=== PATIENT | male | born 1975 | race African-American/Black ===

== ENCOUNTER 2016-04-24 20:31 | Emergency (ER) | payer OTHER ==
[2016-04-24 18:39] LABS: BASOPHILS 0.3 %; BASOPHILS ABSOLUTE 0.03 10/3/uL (0.0-0.16); EOSINOPHILS 1.8 %; EOSINOPHILS ABSOLUTE 0.19 10/3/uL (0.0-0.53); ER CBC TAT 0 Hrs 05 Mins; HEMATOCRIT 42.4 % (40.0-51.0); HEMOGLOBIN 14.8 g/dL (13.6-17.8); IMMATURE GRANULOCYTES 0.3 %; IMMATURE GRANULOCYTES ABSOLUTE 0.03 10/3/uL (0.0-0.11); LYMPHOCYTES 24.7 %; LYMPHOCYTES ABSOLUTE 2.61 10/3/uL (0.67-4.30); MANUAL DIFF NO %; MEAN CORPUS HGB CONC 34.9 g/dL (32.0-36.0); MEAN CORPUSCULAR HEMOGLOB 31.2 pg (26.0-34.0); MEAN CORPUSCULAR VOLUME 89.5 fL (80-100); MEAN PLATELET VOLUME 9.7 fL (9.2-13.0); MONOCYTES 9.9 %; MONOCYTES ABSOLUTE 1.04 10/3/uL (0.21-1.20); NEUTROPHILS ABSOLUTE 6.65 10/3/uL (2.02-8.40); PLATELET COUNT 254 10/3/uL (150-400); RBC DISTRIBUTION WIDTH 14.1 % (12.0-16.0); RED CELL COUNT 4.74 10/6/uL (4.7-6.1); WHITE BLOOD CELLS 10.6 10/3/uL (4.5-10.5)
[2016-04-24 18:55] LABS: CALCIUM, SERUM 8.6 MG/DL (8.5-10.4); CHLORIDE, SERUM 102 MMOL/L (96-112); CO2 (CARBON DIOXIDE) 31 MMOL/L (24-34); CREATININE 1.34 MG/DL (0.70-1.30); GFR AFRICAN AMERICAN 75 ML/MIN (>=60); GFR NON AFRICAN AMERICAN 64 ML/MIN (>=60); GLUCOSE, SERUM 93 MG/DL (60-99); INTERNATIONAL NORMAL RATI 1.1 UNITS (-); POTASSIUM, SERUM 3.6 MMOL/L (3.5-5.3); PROTIME (NOT ORD) 14.2 SEC (12.0-14.5); SODIUM, SERUM 141 MMOL/L (135-148)
[2016-04-24 18:56] LABS: BUN (BLOOD UREA NITROGEN) 13 MG/DL (6-23)
[2016-04-24 19:01] LABS: CHEST PAIN PROFILE TAT 0 Hrs 27 Mins; TROPONIN I 0.07 NG/ML (<0.05)
[~2016-04-24 20:31] MED LIST: *DENIES; APRES50 PO; ASAB PO; BENTYL20 PO; CAT2 PO; COREG12 PO; DENIES MEDS; DIOV160 PO; DIOVAN PO; DIOVAN40 MG PO; HALF81 PO; L20 PO; L40 PO; NITROSPRAY SL; NORCO1 TA1 PO; PRAVACHOL40 MG PO; PRIN20 PO; TRANDAT100 PO; V80 PO; VERAPAMIL PO; ZOVI800 PO
[2016-04-24] MEDS ORDERED: CAT2 PO (21:14)
[2016-04-24] MEDS ORDERED: COREG12 PO (21:14)
[2016-04-24] MEDS ORDERED: ASAB PO (21:15)
[2016-04-24] MEDS ORDERED: PRAVASTATIN PO (21:15)
[2016-04-24] MEDS ORDERED: LASIX PO (21:15)
== END 2016-04-24 21:56 | disposition admitted as inpatient to this hospital (09) ==
LOC: ER 20:31
PROVIDERS: Emergency Medicine
DX: I16.1 Hypertensive emergency (principal); I12.9 Hypertensive chronic kidney disease with stage 1 through stage 4 chronic kidney disease, or unspecified chronic kidney disease; N18.9 Chronic kidney disease, unspecified; F17.200 Nicotine dependence, unspecified, uncomplicated; Z88.8 Allergy status to other drugs, medicaments and biological substances; Z79.82 Long term (current) use of aspirin; Z79.899 Other long term (current) drug therapy
CPT/HCPCS: 71020; 80048; 83735; 84484; 85025; 85610; 85730; 93005; 96374; 99291; A9270-GY; J0360

== ENCOUNTER 2016-07-24 15:11 | Emergency (ER) | payer OTHER ==
[~2016-07-24 15:11] MED LIST changes: +LASIX PO; +PRAVASTATIN PO
== END 2016-07-24 16:55 | disposition home or self-care (01) ==
LOC: ER 15:11
DX: J06.9 Acute upper respiratory infection, unspecified (principal); I10 Essential (primary) hypertension; E78.5 Hyperlipidemia, unspecified; F41.9 Anxiety disorder, unspecified; Z88.8 Allergy status to other drugs, medicaments and biological substances; Z79.899 Other long term (current) drug therapy; Z79.82 Long term (current) use of aspirin
CPT/HCPCS: 99283

== ENCOUNTER 2016-07-30 05:41 | Observation (INO) | payer OTHER ==
--- NOTE | ~2016-07-30 | DS ---
Discharge Summary [facility] [address] [place]. [address] NAME: YANELI ORTIZ : 71 STATUS : ADM Selina PAT#: [id number] AGE: 41 ADM/REG DATE : 07/30/16 MR#: [id number] REPORT SERV DATE: 07/31/16 DICTATED BY: ELIZABETH TRAORE DATE: 07/31/16 REPORT STATUS : Draft TRANSCRIBED BY: GALO DATE: 07/31/16 ADMISSION DATE: 07/30/2016 DISCHARGE DATE: DIAGNOSES: 1. Atrial fibrillation with rapid ventricular response. 2. Hypertension, uncontrolled. 3. Chronic kidney disease. FOLLOWUP: The patient is to follow up with his primary care physician, Fany Cedillo, nurse practitioner, with [facility] in one week and also the patient's primary care is to follow up with an outpatient stress test in one week for baseline abnormal EKG. The patient is to keep a journal of blood pressure readings while at home. DIET: [facility] diet. DISCHARGE MEDICATIONS: Acyclovir 400 mg p.o. b.i.d., enteric-coated aspirin 81 mg p.o. daily, Coreg 12.5 mg p.o. b.i.d., furosemide 20 mg p.o. daily, lisinopril 10 mg p.o. b.i.d., potassium chloride 10 mEq p.o. daily, clonidine 0.2 mg p.o. b.i.d. p.r.n. systolic pressures greater than or equal to 160, diltiazem CD 180 mg p.o. q.a.m. IMAGING: Echocardiogram with an ejection fraction of 50% to 55% with mild diastolic dysfunction and moderate concentric left ventricular hypertrophy and mild pulmonary valvular regurgitation. LV function is normal with no regional wall motion abnormality. The chamber size is normal. HOSPITAL COURSE: Please see HP dictated by Dr. Roger Choi. This is a 41-year-old male with past medical history of paroxysmal atrial fibrillation and hypertension of which the patient is known to have uncontrolled hypertension. The patient missed the dose of his clonidine and Coreg and awakened with palpitations. Please refer to H and P for further details. The patient was seen in the emergency department, found to have an uncontrolled hypertension and atrial fibrillation with RVR and the patient was initiated on Cardizem drip. The patient did not have any chest pain before nor during his hospitalization. Initially, the patient was admitted under observation. He did not receive any digoxin which was ordered by the admitting physician, and the patient returned and converted to sinus rhythm prior to any digoxin. Therefore, the digoxin was completely discontinued. However, the patient was continued on Cardizem oral with his Coreg for rate control and also for better blood pressure management. The patient has known uncontrolled hypertension. He was continued on aspirin as well. He did not have any chest pain, although he does have a baseline abnormal EKG which is chronic. The patient was advised for an inpatient stress test due to some mild demand ischemia. However, the patient refused and the patient said he could not afford to remain in the hospital for that test and preferred for an outpatient stress test. The patient was advised on the importance of following up for an outpatient stress test and should be followed by his primary respiratory care practitioner, Fany Cedillo, nurse practitioner. The patient also agreed. Also, the patient was informed of the importance of Discharge Summary [address] [id number] NAME: YANELI ORTIZ : 71 STATUS : ADM Selina PAT#: [id number] AGE: 41 ADM/REG DATE : 07/30/16 MR#: [id number] REPORT SERV DATE: 07/31/16 DICTATED BY: ELIZABETH TRAORE DATE: 07/31/16 REPORT STATUS : Draft TRANSCRIBED BY: GALO DATE: 07/31/16 better blood pressure control and increased cardiovascular risk with uncontrolled hypertension. Also, the patient was advised on AHA diet and close monitoring of his blood pressure daily while at home. Also, the patient was advised to return to the hospital if he were to develop any chest discomfort. Also, the patient's lisinopril dose was increased from once a day to b.i.d. for better a blood pressure control. The patient is to be discharged to home and to follow up as an outpatient. DICTATED BY: Brian Rush/GALO Elizabeth Traore M.D. / [id number] CC: Brian Rush, BOILER REPAIR SUPERVISOR
--- NOTE | ~2016-07-30 | HP ---
History And Physical [address] [place]. [address] NAME: YANELI ORTIZ : 71 STATUS : ADM Selina PAT#: [id number] AGE: 41 ADM/REG DATE : 07/30/16 MR#: [id number] REPORT SERV DATE: 07/30/16 DICTATED BY: BLANCA PIRES DATE: 07/30/16 REPORT STATUS : Draft TRANSCRIBED BY: MODL DATE: 07/30/16 DATE OF ADMISSION: 07/30/2016 EXAMINING PHYSICIAN: Blanca Pires M.D. REASON FOR ADMISSION: Atrial fibrillation and hypertension. HISTORY OF PRESENT ILLNESS: This is a 41-year-old black male, who skipped a dose of clonidine and carvedilol yesterday. He woke up this morning with palpitations. He drank a beer yesterday but did not drink heavily. He came to the emergency room and was found to have atrial fibrillation, seen by Rani, nurse practitioner. Blood pressure is elevated and I am asked for assistance with admission and treatment. PAST MEDICAL HISTORY: The patient has similar episode of atrial fibrillation in the past and had an echocardiogram done. Indications are that he had it in 2007 and the record has been purged. He was last hospitalized on 01/04/2016, with hypertension uncontrolled. He has been out of his hypertensive medication and developed hypertension. He was restarted on his home medications and improved. He denies chest pain, shortness of breath. He is bothered by the palpitation, feels weak. HOME MEDICATIONS: Include the following: Lasix unknown dose one a day. Acyclovir 400 mg p.o. b.i.d., though he has not had much problem with herpes in the past. Aspirin 81 mg p.o. daily. Carvedilol 12.5 mg p.o. b.i.d. Clonidine 0.2 p.o. daily. Lisinopril 10 mg p.o. daily. Potassium 20 mEq p.o. daily. Lasix probably 40 mg p.o. b.i.d. ALLERGIES: LABETALOL AND AMLODIPINE, HAD AN ADVERSE REACTION. SOCIAL HISTORY: He is not . Has two grown children. 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 Drinks beer four or five days a week. Smokes cigarettes when he drinks a beer, usually. He does not smoke regularly. He does not attend mosque. FAMILY HISTORY: He has two brothers; one with diabetes. Two sisters, alive and well. Mother had diabetes and rheumatoid arthritis. Father's health history is unknown. REVIEW OF SYSTEMS: No chest pain or shortness of breath. Does have palpitations. No syncopal episodes. No fever, chills, night sweats, melena, hematemesis, fits, seizures, convulsions, or unilateral weakness, nausea, vomiting, or diarrhea. The remainder of the review of systems is negative. PHYSICAL EXAMINATION: VITAL SIGNS: Blood pressure 155/103 with a heart rate of 93, respiratory rate 18, afebrile. HEENT: EOMI. Sclerae injected. Conjunctivae pink. NECK: Negative bruits without any JVD. History And Physical [address] [place]. [address] NAME: YANELI ORTIZ : 71 STATUS : ADM Selina PAT#: [id number] AGE: 41 ADM/REG DATE : 07/30/16 MR#: [id number] REPORT SERV DATE: 07/30/16 DICTATED BY: BLANCA PIRES DATE: 07/30/16 REPORT STATUS : Draft TRANSCRIBED BY: GALO DATE: 07/30/16 CHEST: Clear to A and P. HEART: Irregularly irregular. S1, S2. No murmur, gallop, or click. ABDOMEN: Prominent, obese, nontender. Bowel sounds positive. EXTREMITIES: Showed no edema. Distal pulses are intact, dorsalis pedis and posterior tibial. NEUROLOGIC: He does withdraw to plantar stimulation. Health Policy Nurse equal and symmetric bilaterally. Coordination intact. He has no tremor. He is symmetric and equal neurologically bilaterally. SKIN: Without rash, ecchymosis, or bruising. He does have tattoos on his arms and on the volar aspect bilaterally. LYMPHATICS: There is no adenopathy palpable. LABORATORY DATA: Chest x-ray shows no acute cardiopulmonary abnormality. The hemoglobin was 16.9, hematocrit 46.8, white count 9.8, platelets 308,000. His INR is 1.1. D-dimer was 0.34, which is less than the upper and a normal, which is less than 0.05. Sodium is 142, potassium 3.5, creatinine 1.3, with BUN of 12 and troponin was 0.07 but had been 0.1 in the past. DIAGNOSTIC DATA: The EKG shows evidence of left ventricular hypertrophy strain with a lateral T-wave inversion and atrial fibrillation. ASSESSMENT: 1. Atrial fibrillation with controlled ventricular response, now on IV Cardizem drip. He had a similar episode in the past. We will check echocardiogram looking for evidence of anatomic abnormalities. I suspect LVH with strain based on the EKG and his history of hypertension. I will look at this. I am going to go ahead and digitalize as he is already on beta giacomo, though switching from carvedilol to metoprolol may have additional antiarrhythmic effect and be a better rate controlling beta giacomo. We will leave at the carvedilol for now and add digoxin. 2. Hypertensive urgency. Uncontrolled on current medication. It could be noncompliance that is part of the problem here now. 3. Modest obesity. 4. Left ventricular hypertrophy with strain. 5. History genital herpes, on acyclovir. PLAN: I am going to admit to observation. I suspect this will be a short-lived episode and restarting some medication may be sufficient to have him return back to normal sinus rhythm. Consider DC electrical cardioversion if necessary. NORMA/GALO Blanca Pires M.D. / [id number] History And Physical [address] [address] NAME: YANELI ORTIZ : 71 STATUS : ADM Selina PAT#: [id number] AGE: 41 ADM/REG DATE : 07/30/16 MR#: [id number] REPORT SERV DATE: 07/30/16 DICTATED BY: BLANCA PIRES DATE: 07/30/16 REPORT STATUS : Draft TRANSCRIBED BY: MODL DATE: 07/30/16 CC: Pedro Jordan Jr, MD [facility]
[2016-07-30 05:38] LABS: BASOPHILS 0.3 %; BASOPHILS ABSOLUTE 0.03 10/3/uL (0.0-0.16); EOSINOPHILS 2.8 %; EOSINOPHILS ABSOLUTE 0.27 10/3/uL (0.0-0.53); HEMOGLOBIN 16.9 g/dL (13.6-17.8); IMMATURE GRANULOCYTES 0.4 %; IMMATURE GRANULOCYTES ABSOLUTE 0.04 10/3/uL (0.0-0.11); LYMPHOCYTES 29.3 %; LYMPHOCYTES ABSOLUTE 2.86 10/3/uL (0.67-4.30); MEAN CORPUSCULAR HEMOGLOB 31.6 pg (26.0-34.0); MEAN CORPUSCULAR VOLUME 87.5 fL (80-100); MEAN PLATELET VOLUME 9.5 fL (9.2-13.0); MONOCYTES 7.9 %; MONOCYTES ABSOLUTE 0.77 10/3/uL (0.21-1.20); NEUTROPHILS 59.3 %; NEUTROPHILS ABSOLUTE 5.79 10/3/uL (2.02-8.40); PLATELET COUNT 308 10/3/uL (150-400); RBC DISTRIBUTION WIDTH 13.6 % (12.0-16.0); RED CELL COUNT 5.35 10/6/uL (4.7-6.1); WHITE BLOOD CELLS 9.8 10/3/uL (4.5-10.5)
[2016-07-30 05:39] LABS: HEMATOCRIT 46.8 % (40.0-51.0); MANUAL DIFF NO %; MEAN CORPUS HGB CONC 36.1 g/dL (32.0-36.0)
[2016-07-30 05:44] LABS: INTERNATIONAL NORMAL RATI 1.1 UNITS (-); PARTIAL THROMBO TIME 32.1 SEC (22.5-37.2); PROTIME (NOT ORD) 13.7 SEC (12.0-14.5)
[2016-07-30 05:54] LABS: BUN (BLOOD UREA NITROGEN) 10 MG/DL (6-23); CALCIUM, SERUM 9.1 MG/DL (8.5-10.4); CHLORIDE, SERUM 108 MMOL/L (96-112); CO2 (CARBON DIOXIDE) 26 MMOL/L (24-34); GFR AFRICAN AMERICAN 77 ML/MIN (>=60); GFR NON AFRICAN AMERICAN 67 ML/MIN (>=60); GLUCOSE, SERUM 89 MG/DL (60-99); POTASSIUM, SERUM 3.5 MMOL/L (3.5-5.3); SODIUM, SERUM 142 MMOL/L (135-148)
[2016-07-30 05:58] LABS: CHEST PAIN PROFILE TAT 0 Hrs 26 Mins; TROPONIN I 0.07 NG/ML (<0.05)
[2016-07-30 06:34] LABS: D-DIMER QUANTITATIVE 0.34 ug/mLFEU (< 0.50)
[2016-07-30] MEDS ORDERED: PRIN10 PO (08:02)
[2016-07-30] MEDS ORDERED: ZOVIRAX400 MG PO (08:02)
[2016-07-30] MEDS ORDERED: HALF81 PO (08:02)
[2016-07-30] MEDS ORDERED: COREG12 PO (08:03)
[2016-07-30] MEDS ORDERED: KLOR-CON 1010 MEQ PO (08:03)
[2016-07-30] MEDS ORDERED: CAT2 PO (08:03)
[2016-07-30] MEDS ORDERED: [UNRECOGNIZED DRUG - REMARK] PO (08:04)
[2016-07-30] MEDS ORDERED: *UNABLE3 (08:06)
[2016-07-30] MEDS ORDERED: L20 PO (10:44)
[2016-07-30 15:31] LABS: GAMMA GT 46 U/L (5-85)
[2016-07-30 15:33] LABS: ULTRASENSITIVE TSH 0.698 MCIU/ML (0.358-3.740)
[2016-07-31 03:58] LABS: CALCIUM, SERUM 8.4 MG/DL (8.5-10.4); CHLORIDE, SERUM 104 MMOL/L (96-112); CO2 (CARBON DIOXIDE) 28 MMOL/L (24-34); CREATININE 1.31 MG/DL (0.70-1.30); GFR AFRICAN AMERICAN 77 ML/MIN (>=60); GFR NON AFRICAN AMERICAN 66 ML/MIN (>=60); GLUCOSE, SERUM 98 MG/DL (60-99); POTASSIUM, SERUM 3.6 MMOL/L (3.5-5.3); SODIUM, SERUM 140 MMOL/L (135-148)
[2016-07-31 04:09] LABS: BUN (BLOOD UREA NITROGEN) 14 MG/DL (6-23)
[2016-07-31 06:33] LABS: DIGOXIN 0.1 NG/ML (0.8-2.0)
[2016-07-31 06:35] LABS: TROPONIN I 0.05 NG/ML (<0.05)
[2016-07-31] MEDS ORDERED: CARDCD180 PO (10:29)
[2016-07-31] MEDS ORDERED: CAT2 PO (15:03)
== END 2016-07-31 17:05 | disposition home or self-care (01) ==
LOC: ER 05:41 → CDU1 12:20
PROVIDERS: Internal Medicine; Nurse Practitioner Acute Care
DX: I48.91 Unspecified atrial fibrillation (principal); I16.0 Hypertensive urgency; E66.01 Morbid (severe) obesity due to excess calories; F17.210 Nicotine dependence, cigarettes, uncomplicated; I12.9 Hypertensive chronic kidney disease with stage 1 through stage 4 chronic kidney disease, or unspecified chronic kidney disease; N18.9 Chronic kidney disease, unspecified; Z79.82 Long term (current) use of aspirin; Z79.899 Other long term (current) drug therapy; Z88.8 Allergy status to other drugs, medicaments and biological substances; Z83.3 Family history of diabetes mellitus; Z82.61 Family history of arthritis; Z98.890 Other specified postprocedural states
CPT/HCPCS: 71010; 80048; 80162; 82977; 83735; 84443; 84484; 85025; 85379; 85610; 85730; 93005; 93306; 96374; 96375; 96376; 99285; A9270-GY; G0378; J0360; J1160